=== PATIENT | female | born 1980 | race Caucasian/White ===

== ENCOUNTER → 2021-06-27 | Outpatient (CLI) | payer BC | LOC: MC.RAD 05-23 11:15 | DX: Z12.31 Encounter for screening mammogram for malignant neoplasm of breast (principal) ==

== ENCOUNTER → 2023-11-26 | Outpatient (CLI) | payer BC | LOC: MC.RAD 13:19 | DX: Z12.31 Encounter for screening mammogram for malignant neoplasm of breast (principal) ==